=== PATIENT | female | born 1950 | race African-American/Black ===

== ENCOUNTER → 2020-07-22 | Day surgery (SDC) | payer OTHER ==
[2020-07-18 15:37] LABS: Absolute Lymphocytes (CBC) 2.7 K/uL (0.7-4.9); Basophils % 0.5 % (0-1.3); Hematocrit 40.5 % (36.0-45.0); Lymphocytes % 34.5 % (15.3-44.8); MPV 8.9 fL (7.6-11.3); Potassium 5.4 mmol/L (3.5-5.1)
--- NOTE | 2020-07-19 07:44 | RAD REPORT ---
EXAM DESCRIPTION: RAD - Chest Pa And Lat (2 Views) - 07/18/2020 3:14 pm CLINICAL HISTORY: preop, pending right lower quadrant mass removal COMPARISON: June 2019 TECHNIQUE: Frontal and lateral views of the chest were obtained. FINDINGS: The lungs are clear. Heart size is normal and central vasculature is within normal limit s. No pleural effusion or pneumothorax seen. No acute bony finding noted. No aortic abnormality. IMPRESSION: No acute cardiopulmonary process. No significant change from comparison.
[~2020-07-22] MED LIST: CIPROFLOXACIN 400mg IV 400 MG/200 ML BAG IV ONE; FENTANYL CITR 100 MCG/2 ML ONE; LIDOCAINE 2% MPF 5 ML VIAL ONE; MEPERIDINE HCL 25 MG/ML SYR ONE; ONDANSETRON 4 MG/2 ML VIAL ONE; Ringers Lactate 1,000 ML IV ONE; propofoL 200 MG/20 ML VIAL IV ONE
--- NOTE | 2020-07-22 09:00 | P.BOP ---
Preoperative diagnosis: infected abdominal wall mass Postoperative diagnosis: same Primary procedure: Excisional biopsy of infected abdominal wall mass with abscess drainage Secondary procedure: 3 x 2 x 1.5 cm Estimated blood loss: <10cc Specimen: mass and cult Findings: see dictation Anesthesia: General Complications: None Transferred to: Recovery Room Condition: Good
--- NOTE | 2020-07-22 09:33 | DS ---
Diagnosis: Infected abdominal wall subcutaneous mass with abscess. Procedure: Excisional biopsy of infected abdominal wall subcutaneous mass with abscess drainage. Disposition: Home. Activity: As tolerated. No heavy lifting. Plan: Follow up in my office this Wednesday, so we can help with dressing changes. She is going to leave the dressings intact until then. Medications: Tylenol No. 3 q.4 hours p.r.n. pain, Cipro 500 mg p.o. b.i.d. NERI/MILDRED Voice ID: [id number] Report ID: [id number]
--- NOTE | 2020-07-22 09:33 | OP ---
Date of Procedure: 07/22/2020 Surgeon: Mor Chowdary MD Preoperative Diagnosis: Infected abdominal wall subcutaneous mass. Postoperative Diagnosis: Infected abdominal wall subcutaneous mass. Procedure: Excisional biopsy of infected abdominal wall subcutaneous mass, 3 x 2 x 1.5 cm, with absc ess drainage. Specimens: Mass and culture. Findings: The patient has a mass lateral to the previous incision and the patient has a deep abscess . Anesthesia: General plus local. Indications: This is the case of a 69-year-old patient, who comes to us with a mass and abdominal wa ll, increasing in size, getting red, tender, today is bigger than before and with redness associated with fluctuance present, consistent with infected mass with an abscess. Benefits, alternatives, and risks of excision and drainage of an abscess were fully explained which include, but not limited to i nfection, bleeding, damage to adjacent structures, anesthesia complication, nonhealing wound, [place], and even . She also understands this may not relieve the symptoms. She might need more than one s urgical intervention. She understands she will require most likely wound care. The area of concern was marked by me and the patient in the holding room. Description Of Procedure: The patient was brought to the operating room and placed in supine positio n. Anesthesia was done without complication. Abdominal area was prepped and draped in the sterile f ashion. A time-out was called. Local anesthesia was applied followed by a wedge incision of the ski n to include the infected skin with the infected subcutaneous tissue all the way down to about 1.5 cm . At the bottom of this, the patient has an abscess, collection of pus present, that was drained. L oculations were explored open, irrigated and cultured before that. Local anesthesia was applied. Ir rigation was done. Hemostasis obtained and the area was packed with dry dressing. The patient simin ated the procedure well. The patient was sent to Recovery in stable condition. HM/MODL Voice ID: [id number] Report ID: [id number]
[2020-07-22 10:26] VITALS: BP 116/56; TEMP 96.4; O2SAT 100
== END | disposition home or self-care (01) ==
LOC: OR 07:22
PROVIDERS: ATTEND Surgery
PROC: 0WBF0ZZ Excision of Abdominal Wall, Open Approach (ICD-10-PCS; principal; 2020-07-22 08:30)
DX: L72.0 Epidermal cyst (principal); I10 Essential (primary) hypertension; M81.0 Age-related osteoporosis without current pathological fracture; Z20.828 Contact with and (suspected) exposure to other viral communicable diseases
CPT/HCPCS: 93005; 87070; 85025; 80048; 36415; 87205; 88304; 87075; 87077; 87186; 71046; 11403; U0002; J2704; J3010; J2175; J7120; J2405; J0744; 88305

== ENCOUNTER 2025-02-20 16:06 | Emergency (ER) | payer OTHER ==
--- OUTSIDE RECORDS SUMMARY | 2025-02-20 16:11 | XMS REPORT | Continuity of Care Document ---
Author Name Unknown Address [address] [facility] [address] [place] [address] Organization [facility] [place] Address [address] [facility] [address] [place] [address] Care Team Providers Care Horticultural Specialty Grower Name Role Phone ([place]), [facility] Primary Care Phys ician Santi Spears Attending Clinician Unavailable Atilio Hanley MD Attending Clinician [phone] ATILIO HANLEY Attending Clinician Unavailable SAM JACOBS Attending Clinician Unavaila Sam Berger Attending Clinician [phone] Doctor Unassigned, [place] Attending Clinician U Atilio Bowie MD Attending Clinician [phone] SABI ADKINS Attending Clinician Unavailable Angelo BLAIR-Sabi Manzano Attending Clinician [phone] MAXIMO ABBOTT Attending Clinician Unavailable BENNIE MISTRY Attending Clinician Unavailable Milo_S_AH Attending Clinician Unavailable Venancio-Edwardo_A_AH Attending Clinician Unavailable ATILIO HANLEY Admitting Clinician Unavailable SAM JACOBS Admitting Clinician Unavaila ble Milo_S_AH Admitting Clinician Unavailable Venancio-Mbayo_A_AH Admitting Clinician Unavailable Payers Payer Name Policy Type Policy Number Effective Date Expirati on Date Source [place] [employer] P [id number] [facility] AARP MCR Advantage PPO [id number] 2024 00:00:00 [facility] WELLCARE TXP CLASSIC NO PREMIUM [id number] 2021 00:00:00 [employer] [place] (MEDICARE REPLACEMENT/ADV ANTAGE - HMO) [id number] 2019 00:00:00 [facility] [id number] 2015 00:00:00 Problems Condition Name Condition Details Condition Category Status Onset Date Resolution Date Last Treatment Date Treating Clinician Comments Source Primary hypertensi on Primary hypertensi on Disease Active 06-27 00:00: 00 [facility] Palpitatio ns Palpitatio ns Disease Active 06-27 00:00: 00 [facility] Osteopenia Osteopenia Disease Active 02-13 00:00: 00 Overview: Formattin g of this note might be different from the original. On bisphosph prasad [email or web address] Anh Morton History of kidney stones History of kidney stones Disease Active 02-13 00:00: 00 Anh Morton Hypertensi ve disorder Hypertensi ve Disorder Problem Active 2019-11 00:00: 00 [facility] Osteoporos is Osteoporos is Problem Active 2019-11 00:00: 00 [facility] [id number] Tingling of left upper extremity Problem [facility] [id number] Mild hyperlipid emia Problem [facility] [id number] Iron deficiency anemia, unspecifie d iron deficiency anemia type Problem [facility] [id number] Age-relate d osteoporos is without current pathologic al fracture Problem [facility] [id number] Incontinen ce of feces, unspecifie d fecal incontinen ce type Problem [facility] [id number] Memory change Problem [facility] [id number] Other specified cardiac arrhythmia s Problem [facility] No known active problems No known active problems Disease [facility] Allergies, Adverse Reactions, Alerts Allergy Name Allergy Type Status Severity Reaction(s) Onset Date Inactive Date Treating Clinician Comments Source PERFLUTR EN LIPID MICROSPH ERES DRUG INGREDI Active Med Other-Cmnt 11-19 00:00: 00 [facility] Perflutr en Lipid Microsph eres Propensi ty to adverse reaction s to drug Active Other - See comments 11-19 00:00: 00 Back pain 4/10 [facility] Penicill in G Propensi ty to adverse reaction s Active Rash 3- 00:00: 00 Anh Morton Penicill in Propensi ty to adverse reaction s Active Rash 3- 00:00: 00 [facility] PENICILL IN DRUG INGREDI Active Rash 3- 00:00: 00 [facility] [id number] Drug allergy Active Unknown [facility] Latex Allergy to substanc e Active Moderate to severe Hives [facility] PENICILL INS Allergy to substanc e Active Moderate to severe Anaphylaxis [facility] NO KNOWN ALLERGIE S Drug Class Active [facility] Social History Social Habit Start Date Stop Date Quantity Comments Source History of Tobacco Use [facility] Sex Assigned At [facility] to SARS-CoV-2 (event) 2022-12-25 00:00:00 2023-01-04 17:23:00 Not sure [facility] Alcoholic beverage intake 2023-01-04 00:00:00 2023-01-04 00:00:00 Current non-drinker of alcohol (finding) [facility] Tobacco use and exposure 2022-09-10 00:00:00 2022-09-10 00:00:00 Smokeless tobacco non-user [facility] History of Social function 2022-09-10 00:00:00 2022-09-10 00:00:00 [facility] Alcohol intake 2022-09-10 00:00:00 2022-09-10 00:00:00 Current non-drinker of alcohol (finding) [facility] Smoking Status Start Date Stop Date Source Never smoked tobacco [facility] Medications Ordered Medication Name Filled Medication Name Start Date Stop Date Current Medication? Ordering Clinician Indication Dosage Frequency Signature (SIG) Comments Components Source iopamidol (ISOVUE 370-500 mL) injection 85 mL 07-18 19:00: 00 07-18 18:03 :00 No [id number] 85mL 85 mL, Intravenou s, ONCE, 1 dose, On Wed07/18/24 at 1400, Routine [facility] lisinopril 10 mg tablet 06-27 14:12: 51 Yes 5mg Take 0.5 tablets by mouth in the morning. [facility] amLODIPine 2.5 mg tablet 06-27 14:12: 51 Yes 2.5mg Take 1 tablet by mouth in the morning. [facility] ketorolac (TORADOL) injection 15 mg 01-05 00:30: 00 01-04 23:43 :00 No 15mg 15 mg, Slow IV Push, ONCE, 1 dose, On Wed01/04/23 at 1830, Routine [facility] dexamethaso ne (DECADRON PHOSPHATE) injection 10 mg 01-05 00:30: 00 01-04 23:41 :00 No 10mg 10 mg, Oral, ONCE, 1 dose, On Wed01/04/23 at 1830, Routine [facility] ibuprofen 600 mg tablet 01-04 00:00: 00 Yes [id number] 600mg Take 1 tablet by mouth every 6 (six) hours as needed for Pain (scale 4-6). [facility] Nystatin does not apply Powder 2020-11 00:00: 00 Yes [id number] Apply 1 applicatio n topically 3 times daily Anh Morton Miconazole Nitrate 2 % apply externally Powder 2020-11 00:00: 00 Yes [id number] Apply BID X 10 days Anh Morton Triamcinolo ne Acetonide 0.1 % apply externally Lotion 2020-11 00:00: 00 09-15 00:00 :00 No Bid to affected area Anh Morton Fexofenadin e (Joy Allergy) 180 MG oral Tablet 2020-11 00:00: 00 09-15 00:00 :00 No 180mg Take 1 tablet (180 mg total) by mouth daily Anh Morton Clobetasol Propionate 0.05 % apply externally Lotion 2020-11 00:00: 00 09-15 00:00 :00 No Apply topically 2 times daily for 30 days Anh Morton Clindamycin Phosphate (Clindagel) 1 % apply externally Gel 2020-11 00:00: 00 Yes [id number] Apply to affected area 3-4 times daily Anh Morton Doxycycline Hyclate 100 MG oral Tablet 2020-11 00:00: 00 Yes [id number] 100mg Take 1 tablet (100 mg total) by mouth 2 times daily Anh Morton methylPREDN ISolone (Medrol) 4 MG oral Tablet Therapy Pack 03-19 00:00: 00 Yes [id number] 1{andrew} Take 1 andrew by mouth See Admin Instructio ns Use as directed. Anh Morton Amoxicillin -Pot Clavulanate 875-125 MG oral Tablet 03-19 00:00: 00 Yes [id number] 1{tbl} Take 1 tablet by mouth 2 times daily Anh Morton Na Sulfate-K Sulfate-Mg Sulf (Suprep Bowel Prep Kit) 17.5-3.13-1 .6 GM/177ML oral Solution 02-20 00:00: 00 Yes USE DIRECTED Anh Morton Lisinopril 5 MG oral Tablet 02-13 00:00: 00 Yes [id number] 5mg Take 1 tablet (5 mg total) by mouth daily Anh Morton Amlodipine Besylate 2.5 MG oral Tablet 02-13 00:00: 00 Yes [id number] 2.5mg Take 1 tablet (2.5 mg total) by mouth daily Anh Morton ketorolac (TORADOL) injection 30 mg 01-01 18:45: 00 01-01 17:50 :00 No 30mg 30 mg, Intramuscu lar, ONCE, 1 dose, Wed01/01/21 at 1245, Routine
natural resources faculty member approving Restricted medication : SAM JACOBS [facility] dexamethaso ne (DECADRON PHOSPHATE) injection 10 mg 01-01 18:45: 00 01-01 17:49 :00 No 10mg 10 mg, Oral, ONCE, 1 dose, Wed01/01/21 at 1245, Routine [facility] ibuprofen 600 mg tablet 01-01 00:00: 00 Yes [id number] 600mg Take 1 tablet by mouth every 6 (six) hours as needed for Pain (scale 4-6). [facility] traMADoL 50 mg tablet 01-01 00:00: 00 Yes [id number] 50mg Take 1 tablet by mouth every 6 (six) hours as needed for Pain (scale 7-10). Indication s: acute pain [facility] sulfamethox azole-trime thoprim 800-160 mg per tablet 01-01 00:00: 00 01-07 05:59 :00 No [id number] 1{tbl} Take 1 tablet by mouth 2 (two) times daily for 5 days. [facility] lisinopril 10 mg tablet 07-21 16:49: 31 Yes 5mg Take 5 mg by mouth daily. [facility] amLODIPine 2.5 mg tablet 07-21 16:49: 31 Yes 2.5mg Take 2.5 mg by mouth daily. [facility] IBANDRONATE SODIUM (BONIVA ORAL) 07-21 16:49: 31 Yes Take by mouth. [facility] lisinopril 10 mg tablet 07-21 11:49: 31 Yes 5mg Take 5 mg by mouth daily. [facility] amLODIPine 2.5 mg tablet 07-21 11:49: 31 Yes 2.5mg Take 2.5 mg by mouth daily. [facility] IBANDRONATE SODIUM (BONIVA ORAL) 07-21 11:49: 31 Yes Take by mouth. [facility] Ibandronate Sodium 150 MG Ibandronate Sodium 150 MG No 1{table t} Ibandronat e Sodium 150 MG amLODIPine Besylate 2.5 MG amLODIPine Besylate 2.5 MG No 1{table t} QD amLODIPine Besylate 2.5 MG Lisinopril 5 MG Lisinopril 5 MG No 1{table t} QD Lisinopril 5 MG alendronate 35 mg tablet Take 1 tablet every week by oral route. alendronate 35 mg tablet Take 1 tablet every week by oral route. No 1 Q1W alendronat e 35 mg tablet Take 1 tablet every week by oral route. [facility] amlodipine 2.5 mg tablet Take 1 tablet every day by oral route. amlodipine 2.5 mg tablet Take 1 tablet every day by oral route. No 1 Q1D amlodipine 2.5 mg tablet Take 1 tablet every day by oral route. [facility] lisinopril 5 mg tablet Take 1 tablet every day by oral route. lisinopril 5 mg tablet Take 1 tablet every day by oral route. No 1 Q1D lisinopril 5 mg tablet Take 1 tablet every day by oral route. [facility] Immunizations Ordered Immunization Name Filled Immunization Name Date Status Comments Source Influenza High Dose 2022-07-02 00:00:00 Completed [facility] Influenza High Dose 2022-07-02 00:00:00 Completed [facility] Influenza High Dose 2022-07-02 00:00:00 Completed [facility] Influenza High Dose 2022-07-02 00:00:00 Completed [facility] Influenza High Dose 2022-07-02 00:00:00 Completed [facility] Influenza, High-Dose, Trivalent, PF (FLUZONE) 2022-07-02 00:00:00 Completed Influenza High Dose 2022-07-02 00:00:00 Completed [facility] Prevnar 20 (PCV20) Prevnar 20 (PCV20) 2022-02-17 15:25:00 Completed [facility] Prevnar 20 (PCV20) Prevnar 20 (PCV20) 2022-02-17 15:25:00 Completed [facility] Prevnar 20 (PCV20) Prevnar 20 (PCV20) 2022-02-17 15:25:00 Completed [facility] Influenza High Dose 2021-07-19 00:00:00 Completed [facility] Influenza High Dose 2021-07-19 00:00:00 Completed [facility] Influenza High Dose 2021-07-19 00:00:00 Completed [facility] Influenza High Dose 2021-07-19 00:00:00 Completed [facility] Influenza High Dose 2021-07-19 00:00:00 Completed [facility] Influenza, High-Dose, Trivalent, PF (FLUZONE) 2021-07-19 00:00:00 Completed [facility] Influenza High Dose 2021-07-19 00:00:00 Completed [facility] Influenza Virus Vaccine, Quadrivalent, High Dose, Age 65 And Up 2021-07-19 00:00:00 Completed Anh Morton Covid-19 Vaccine (Moderna), Mrna-lnp, Jordi Protein, Pf, 100 Mcg/0.5ml,IM 2020-12-18 00:00:00 Completed Anh Morton Covid-19 Vaccine (Moderna), Mrna-lnp, Jordi Protein, Pf, 100 Mcg/0.5ml,IM 2020-12-18 00:00:00 Completed Anh Morton Covid-19 Vaccine (Moderna), Mrna-lnp, Jordi Protein, Pf, 100 Mcg/0.5ml,IM 2020-11-20 00:00:00 Completed Anh Alcarazold Covid-19 Vaccine (Moderna), Mrna-lnp, Jordi Protein, Pf, 100 Mcg/0.5ml,IM 2020-11-20 00:00:00 Completed Anh Morton Influenza Virus Vaccine, age 6 months and up 2018-09-01 00:00:00 Completed Anh Morton Influenza Virus Vaccine, age 6 months and up 2018-09-01 00:00:00 Completed Anh Morton Tdap- (Boostrix, Adacel) 2017-02-08 00:00:00 Completed Anh Morton Tdap- (Boostrix, Adacel) 2017-02-08 00:00:00 Completed Anh Morton Pneumococcal Vaccine, Conjugate 13 2012-11-01 00:00:00 Completed Anh Morton Pneumococcal Vaccine, Conjugate 13 2012-11-01 00:00:00 Completed Anh Morton Prevnar 20 (PCV20) Prevnar 20 (PCV20) Unknown Completed [facility] Prevnar 20 (PCV20) Prevnar 20 (PCV20) Unknown Completed [facility] Prevnar 20 (PCV20) Prevnar 20 (PCV20) Unknown Completed [facility] Prevnar 20 (PCV20) Prevnar 20 (PCV20) Unknown Completed [facility] Prevnar 20 (PCV20) Prevnar 20 (PCV20) Unknown Completed [facility] Prevnar 20 (PCV20) Prevnar 20 (PCV20) Unknown Completed [facility] Prevnar 20 (PCV20) Prevnar 20 (PCV20) Unknown Completed [facility] Prevnar 20 (PCV20) Prevnar 20 (PCV20) Unknown Completed [facility] Prevnar 20 (PCV20) Prevnar 20 (PCV20) Unknown Completed [facility] Prevnar 20 (PCV20) Prevnar 20 (PCV20) Unknown Completed [facility] Prevnar 20 (PCV20) Prevnar 20 (PCV20) Unknown Completed [facility] Prevnar 20 (PCV20) Prevnar 20 (PCV20) Unknown Completed [facility] Fluad (aIIV4) - SDS - 0.5mL Fluad (aIIV4) - SDS - 0.5mL Unknown Completed [facility] Prevnar 20 (PCV20) Prevnar 20 (PCV20) Unknown Completed [facility] Fluad (aIIV4) - SDS - 0.5mL Fluad (aIIV4) - SDS - 0.5mL Unknown Completed [facility] Prevnar 20 (PCV20) Prevnar 20 (PCV20) Unknown Completed [facility] Fluad (aIIV4) - SDS - 0.5mL Fluad (aIIV4) - SDS - 0.5mL Unknown Completed [facility] Influenza High Dose Unknown Completed [facility] Influenza High Dose Unknown Completed [facility] Influenza High Dose Unknown Completed [facility] Influenza High Dose Unknown Completed [facility] Vital Signs Vital Name Observation Time Observation Value Comments Maverick zepeda height 2024-12-20 10:00:00 64 [in_i] [facility] weight 2024-12-20 10:00:00 130.6 [lb_av] Co mmon [facility] temperature 2024-12-20 10:00:00 97.3 [degF] Com mon [facility] bmi 2024-12-20 10:00:00 22.41 kg/m2 Comm on [facility] oximetry 2024-12-20 10:00:00 99 % [facility] heart rate 2024-12-20 10:00:00 67 /min [facility] respiratory rate 2024-12-20 10:00:00 17 /min Common [facility] blood pressure systolic 2024-12-20 10:00:00 114 mm[Hg] Common [facility] blood pressure diastolic 2024-12-20 10:00:00 68 mm[Hg] Common [facility] height 2024-12-20 10:30:00 64 [in_i] Commo n [facility] weight 2024-12-20 10:30:00 130.6 [lb_av] Co mmon [facility] temperature 2024-12-20 10:30:00 97.3 [degF] Com mon [facility] bmi 2024-12-20 10:30:00 22.41 kg/m2 Comm on [facility] oximetry 2024-12-20 10:30:00 98 % Commo n [facility] blood pressure systolic 2024-12-20 10:30:00 114 mm[Hg] Common [facility] blood pressure diastolic 2024-12-20 10:30:00 68 mm[Hg] [facility] height 2024-08-17 08:30:00 64 [in_i] Commo n [facility] weight 2024-08-17 08:30:00 127 [lb_av] Comm on [facility] temperature 2024-08-17 08:30:00 97.3 [degF] Com [facility] bmi 2024-08-17 08:30:00 21.8 kg/m2 Commo n [facility] oximetry 2024-08-17 08:30:00 98 % Commo n [facility] blood pressure systolic 2024-08-17 08:30:00 126 mm[Hg] [facility] blood pressure diastolic 2024-08-17 08:30:00 66 mm[Hg] [facility] height 2024-08-17 08:30:00 64 [in_i] Commo n [facility] weight 2024-08-17 08:30:00 127 [lb_av] Comm on [facility] temperature 2024-08-17 08:30:00 97.3 [degF] Com [facility] bmi 2024-08-17 08:30:00 21.8 kg/m2 Com[facility] oximetry 2024-08-17 08:30:00 98 % [facility] blood pressure systolic 2024-08-17 08:30:00 126 mm[Hg] [facility] blood pressure diastolic 2024-08-17 08:30:00 66 mm[Hg] [facility] Systolic blood pressure 2024-06-27 19:18:00 119 mm[Hg] [facility] Diastolic blood pressure 2024-06-27 19:18:00 67 mm[Hg] [facility] Heart rate 2024-06-27 19:18:00 62 /min [facility] Body temperature 2024-06-27 19:18:00 36.44 Adeola [facility] Respiratory rate 2024-06-27 19:18:00 14 /min [facility] Body height 2024-06-27 19:18:00 162.6 cm [facility] Body weight 2024-06-27 19:18:00 56.654 kg [facility] BMI 2024-06-27 19:18:00 21.44 kg/m2 [facility] Oxygen saturation in Arterial blood by Pulse oximetry 2024-06-27 19:18:00 100 /min [facility] height 2024-05-17 10:40:00 64 [in_i] Commo n [facility] weight 2024-05-17 10:40:00 122.8 [lb_av] Co [facility] temperature 2024-05-17 10:40:00 97.6 [degF] Com [facility] bmi 2024-05-17 10:40:00 21.08 kg/m2 Comm on [facility] oximetry 2024-05-17 10:40:00 100 % Commo [facility] respiratory rate 2024-05-17 10:40:00 17 /min [facility] blood pressure systolic 2024-05-17 10:40:00 128 mm[Hg] [facility] blood pressure diastolic 2024-05-17 10:40:00 62 mm[Hg] [facility] height 2024-02-22 09:30:00 64 [in_i] Commo n [facility] weight 2024-02-22 09:30:00 120.6 [lb_av] Co on [facility] temperature 2024-02-22 09:30:00 96.8 [degF] Com [facility] bmi 2024-02-22 09:30:00 20.7 kg/m2 [facility] oximetry 2024-02-22 09:30:00 98 % [facility] respiratory rate 2024-02-22 09:30:00 18 /min [facility] blood pressure systolic 2024-02-22 09:30:00 116 mm[Hg] [facility] blood pressure diastolic 2024-02-22 09:30:00 72 mm[Hg] [facility] height 2024-02-22 09:40:00 64 [in_i] Commo n [facility] weight 2024-02-22 09:40:00 120.6 [lb_av] Co mmon [facility] temperature 2024-02-22 09:40:00 96.8 [degF] Com [facility] bmi 2024-02-22 09:40:00 20.7 kg/m2 [facility] oximetry 2024-02-22 09:40:00 98 % [facility] respiratory rate 2024-02-22 09:40:00 18 /min [facility] blood pressure systolic 2024-02-22 09:40:00 116 mm[Hg] [facility] blood pressure diastolic 2024-02-22 09:40:00 72 mm[Hg] [facility] height 2023-08-30 08:50:00 64 [in_i] Commo n [facility] weight 2023-08-30 08:50:00 131.8 [lb_av] Co mmon [facility] temperature 2023-08-30 08:50:00 97.2 [degF] Com [facility] bmi 2023-08-30 08:50:00 22.62 kg/m2 Comm on [facility] oximetry 2023-08-30 08:50:00 99 % Commo [facility] respiratory rate 2023-08-30 08:50:00 16 /min [facility] blood pressure systolic 2023-08-30 08:50:00 122 mm[Hg] Common [facility] blood pressure diastolic 2023-08-30 08:50:00 58 mm[Hg] [facility] height 2023-05-26 09:00:00 64 [in_i] Commo n [facility] weight 2023-05-26 09:00:00 131.8 [lb_av] Co mmon [facility] temperature 2023-05-26 09:00:00 96.8 [degF] Com mon [facility] bmi 2023-05-26 09:00:00 22.62 kg/m2 Comm on [facility] oximetry 2023-05-26 09:00:00 98 % Commo n [facility] respiratory rate 2023-05-26 09:00:00 16 /min [facility] blood pressure systolic 2023-05-26 09:00:00 118 mm[Hg] [facility] blood pressure diastolic 2023-05-26 09:00:00 78 mm[Hg] [facility] height 2023-02-11 09:50:00 64 [in_i] Commo n [facility] weight 2023-02-11 09:50:00 131 [lb_av] Comm on [facility] temperature 2023-02-11 09:50:00 96.6 [degF] Com mon [facility] bmi 2023-02-11 09:50:00 22.48 kg/m2 Comm on [facility] oximetry 2023-02-11 09:50:00 97 % Commo [facility] respiratory rate 2023-02-11 09:50:00 16 /min [facility] blood pressure systolic 2023-02-11 09:50:00 125 mm[Hg] [facility] blood pressure diastolic 2023-02-11 09:50:00 60 mm[Hg] [facility] height 2023-02-11 10:00:00 64 [in_i] Commo n [facility] weight 2023-02-11 10:00:00 131 [lb_av] Comm on [facility] temperature 2023-02-11 10:00:00 96.6 [degF] Com mon [facility] bmi 2023-02-11 10:00:00 22.48 kg/m2 Comm on [facility] oximetry 2023-02-11 10:00:00 97 % Commo n [facility] respiratory rate 2023-02-11 10:00:00 16 /min [facility] blood pressure systolic 2023-02-11 10:00:00 125 mm[Hg] Common [facility] blood pressure diastolic 2023-02-11 10:00:00 60 mm[Hg] Common [facility] height 2023-01-06 11:00:00 64 [in_i] Commo n [facility] weight 2023-01-06 11:00:00 129.8 [lb_av] Co mmon [facility] temperature 2023-01-06 11:00:00 97.4 [degF] Com mon [facility] bmi 2023-01-06 11:00:00 22.28 kg/m2 Comm on [facility] oximetry 2023-01-06 11:00:00 100 % Commo n [facility] respiratory rate 2023-01-06 11:00:00 17 /min [facility] blood pressure systolic 2023-01-06 11:00:00 138 mm[Hg] [facility] blood pressure diastolic 2023-01-06 11:00:00 65 mm[Hg] Common [facility] Systolic blood pressure 2023-01-04 23:23:43 139 mm[Hg] [facility] Diastolic blood pressure 2023-01-04 23:23:43 69 mm[Hg] [facility] Heart rate 2023-01-04 23:23:43 64 /min [facility] 2023-01-04 23:23:43 14 /min [facility] Oxygen saturation in Arterial blood by Pulse oximetry 2023-01-04 23:23:43 97 /min [facility] Body temperature 2023-01-04 20:55:00 37.11 Adeola [facility] Body height 2023-01-04 20:55:00 162.6 cm [facility] Body weight 2023-01-04 20:55:00 58.968 kg [facility] BMI 2023-01-04 20:55:00 22.31 kg/m2 [facility] Systolic blood pressure 2022-09-10 22:02:00 136 mm[Hg] [facility] Diastolic blood pressure 2022-09-10 22:02:00 69 mm[Hg] [facility] Heart rate 2022-09-10 22:02:00 65 /min [facility] Oxygen saturation in Arterial blood by Pulse oximetry 2022-09-10 22:02:00 99 /min [facility] Respiratory rate 2022-09-10 21:57:00 21 /min [facility] Body height 2022-09-10 21:57:00 162.6 cm [facility] Body weight 2022-09-10 21:57:00 60.782 kg [facility] BMI 2022-09-10 21:57:00 23.00 kg/m2 [facility] height 2022-08-18 09:30:00 64 [in_i] Commo n [facility] weight 2022-08-18 09:30:00 133.4 [lb_av] Co mmon [facility] temperature 2022-08-18 09:30:00 97.2 [degF] Com mon [facility] bmi 2022-08-18 09:30:00 22.9 kg/m2 [facility] oximetry 2022-08-18 09:30:00 97 % [facility] respiratory rate 2022-08-18 09:30:00 17 /min Common [facility] blood pressure systolic 2022-08-18 09:30:00 123 mm[Hg] [facility] blood pressure diastolic 2022-08-18 09:30:00 68 mm[Hg] [facility] height 2022-02-17 15:00:00 64 [in_i] Commo n [facility] weight 2022-02-17 15:00:00 137.2 [lb_av] Co mmon [facility] temperature 2022-02-17 15:00:00 97.9 [degF] Com [facility] bmi 2022-02-17 15:00:00 23.55 kg/m2 Comm on [facility] oximetry 2022-02-17 15:00:00 98 % Commo n [facility] respiratory rate 2022-02-17 15:00:00 18 /min [facility] blood pressure systolic 2022-02-17 15:00:00 139 mm[Hg] [facility] blood pressure diastolic 2022-02-17 15:00:00 63 mm[Hg] [facility] height 2022-02-17 14:30:00 64 [in_i] Commo n [facility] weight 2022-02-17 14:30:00 137.2 [lb_av] Co mmon [facility] temperature 2022-02-17 14:30:00 97.9 [degF] Com mon [facility] bmi 2022-02-17 14:30:00 23.55 kg/m2 Comm on [facility] oximetry 2022-02-17 14:30:00 98 % [facility] respiratory rate 2022-02-17 14:30:00 18 /min Common [facility] blood pressure systolic 2022-02-17 14:30:00 139 mm[Hg] Common [facility] blood pressure diastolic 2022-02-17 14:30:00 63 mm[Hg] [facility] height 2021-11-05 11:00:00 64 [in_i] Commo n [facility] weight 2021-11-05 11:00:00 135.9 [lb_av] Co mmon [facility] temperature 2021-11-05 11:00:00 97.3 [degF] Com mon [facility] bmi 2021-11-05 11:00:00 23.32 kg/m2 Comm on [facility] oximetry 2021-11-05 11:00:00 99 % Commo n [facility] respiratory rate 2021-11-05 11:00:00 18 /min [facility] blood pressure systolic 2021-11-05 11:00:00 136 mm[Hg] Common [facility] blood pressure diastolic 2021-11-05 11:00:00 63 mm[Hg] Common [facility] Systolic blood pressure 2021-09-15 18:58:00 118 mm[Hg] Anh Seybo ld Diastolic blood pressure 2021-09-15 18:58:00 67 mm[Hg] Anh Seybo ld Heart rate 2021-09-15 18:58:00 84 /min Kelse y Seybold Body temperature 2021-09-15 18:58:00 36.33 Adeola Anh Alcarazold Body height 2021-09-15 18:58:00 162.6 cm Geri ey Seybold Body weight 2021-09-15 18:58:00 60.782 kg Geri ey Seybold BMI 2021-09-15 18:58:00 23.00 kg/m2 Geri ey Seybold Systolic blood pressure 2021-08-21 19:21:00 123 mm[Hg] Anh Seybo ld Diastolic blood pressure 2021-08-21 19:21:00 64 mm[Hg] Anh Seybo ld Heart rate 2021-08-21 19:21:00 76 /min Joshua Morton Body temperature 2021-08-21 19:21:00 36.67 Adeola Anh Morton Respiratory rate 2021-08-21 19:21:00 14 /min Anh Morton Body height 2021-08-21 19:21:00 162.6 cm Geri Morton Body weight 2021-08-21 19:21:00 62.143 kg Geri Morton BMI 2021-08-21 19:21:00 23.52 kg/m2 Geri Morton Systolic blood pressure 2021-01-01 18:20:00 130 mm[Hg] [facility] Diastolic blood pressure 2021-01-01 18:20:00 60 mm[Hg] [facility] Heart rate 2021-01-01 18:20:00 66 /min [facility] Respiratory rate 2021-01-01 18:20:00 18 /min [facility] Oxygen saturation in Arterial blood by Pulse oximetry 2021-01-01 18:20:00 98 /min [facility] Body temperature 2021-01-01 16:56:00 36.83 Adeola [facility] Body weight 2021-01-01 16:56:00 58.968 kg [facility] BMI 2021-01-01 16:56:00 22.31 kg/m2 [facility] Height 2020-08-08 00:00:00 64 [in_i] Last [facility] BMI (Body Mass Index) 2020-08-08 00:00:00 23.3 kg/m2 [facility] Body Weight 2020-08-08 00:00:00 136 [lb_av] Larry terrye [facility] Procedures Procedure Date / Time Performed Performing Clinician Source CT CERVICAL SPINE WO CONTRAST 2023-01-04 22:46:14 Sam Jacobs [facility] CT HEAD WO CONTRAST 2023-01-04 22:46:14 Mary Jacobs [facility] LIPASE 2023-01-04 22:32:00 [facility]23[facility]-04 22:32:00 [facility] COMP. METABOLIC PANEL ([id number]) 2023-01-04 22:32:00 Sam Jacobs [facility] CBC WITH DIFF 2023-01-04 22:32:00 Sam Jacobs [facility] N-TERMINAL PRO-BNP 2023-01-04 22:32:00 Radha Jacobs [facility] XR SHOULDER 2+ VW LEFT 2023-01-04 22:28:40 Donavan Jacobs [facility] CONSENT/REFUSAL FOR DIAGNOSIS AND TREATMENT 2023-01-04 20:43:34 Doctor Unassigned, [place] [facility] INSURANCE CORRESPONDENCE 2022-10-31 06:01:00 Doc tor Unassigned, [place] [facility] INSURANCE CORRESPONDENCE 2022-10-12 06:01:00 Doc tor Unassigned, [place] [facility] ASSIGNMENT OF BENEFITS 2022-09-10 21:30:44 Docto r Unassigned, [place] [facility] EXTERNAL PROVIDER - ADC REFERRAL 2022-08-27 05:01:00 Doctor Unassigned, [place] [facility] URINALYSIS 2021-01-01 17:20:00 Pavel Faria [facility] Plan of Care Planned Activity Planned Date Details Comments Source Instructions [facility] En[facility] Start Date/Time End Date/Time Encounter Type Admission Type Attending Clinicians Care Facility Care Department Encounter ID Source 2024-12-20 09:47:00 [facility] [id number] [facility] 2024-06-19 14:18:00 [facility] [id number] [facility] 2024-05-15 14:43:00 [facility] [id number] [facility] 2022-08-14 10:04:02 [facility] [id number] [facility] 2021-11-26 14:31:14 Outpatient S[facility] [id number] [facility] 2021-08-17 07:52:54 Outpatient [facility] [id number] [facility] 2024-12-20 00:00:00 2024-12-20 00:00:00 OFF[facility] VISIT [facility] [id number] 2024-12-20 00:00:00 2024-12-20 00:00:00 SUB ANNUAL [facility] [id number] [facility] 2024-07-20 00:00:00 2024-08-26 18:27:55 Patient Secure Atilio Oneal [facility] 1.2.840.114 350.1.13.10 4.2.7.2.686 [id number] [facility] 2024-08-17 00:00:00 2024-08-17 00:00:00 OFFICE VISIT ESTAB PT LEVEL 4 [facility] [id number] [facility] 2024-07-18 09:58:26 2024-07-18 23:59:00 Outpatient R ATILIO [facility] [id number] [facility] 2024-07-18 09:58:26 2024-07-18 23:59:00 Hospital Encounter Atilio Hanley [facility]UD[facility] 1..840.114 350.1.13.10 4.2.7.2.686 [id number] [facility] 2024-07-04 08:00:00 2024-07-04 23:59:00 Outpatient ATILIO [facility] [id number] [facility] 2024-07-04 08:00:00 2024-07-04 23:59:00 [facility] 1.2.840.114 350.1.13.10 4.2.7.2.686 [id number] [facility] 2024-06-27 14:20:00 2024-06-27 14:40:00 [facility] 1.2.840.114 350.1.13.10 4.2.7.2.686 [id number] [facility] 2024-06-27 14:20:00 2024-06-27 14:20:00 [facility] [id number] [facility] 2024-06-19 00:00:00 2024-06-19 00:00:00 (TEL) [facility] [id number] [facility] 2024-05-22 00:00:00 2024-05-22 00:00:00 (TEL) [facility]LMLC [facility] [id number] [facility] 2024-05-17 00:00:00 2024-05-17 00:00:00 OFFICE VISIT ESTAB PT LEVEL 3 [facility] [id number] [facility] 2024-05-15 00:00:00 2024-05-15 00:00:00 (TEL) [facility]LMLC [facility] [id number] [facility] 2024-05-14 00:00:00 2024-05-14 00:00:00 (WEB) STLMLC [facility] [id number] [facility] 2024-04-07 00:00:00 2024-04-07 00:00:00 (TEL) [facility]LMLC [facility] [id number] [facility] 2024-04-04 00:00:00 2024-04-04 00:00:00 (TEL) STLMLC [facility] [id number] [facility] 2024-02-22 00:00:2024-02-22 00:00:00 OFFICE VISIT ESTAB PT LEVEL 4 [facility] [id number] [facility] 2024-02-22 00:00:00 2024-02-22 00:00:00 SUB ANNUAL [facility] WELLNESS VISIT [facility]LMLC [facility] [id number] [facility] 2023-08-30 00:00:00 2023-08-30 00:00:00 OFFICE VISIT ESTAB PT LEVEL 4 [facility] [id number] [facility] 2023-05-26 00:00:00 2023-05-26 00:00:00 OFFICE VISIT ESTAB PT LEVEL 3 [facility] [id number] [facility] 2023-05-24 00:00:00 2023-05-24 00:00:00 (WEB) STLMLC STLML[facility] [id number] [facility] 2023-04-08 00:00:00 2023-04-08 00:00:00 (WEB) STLMLC [facility] [id number] [facility] 2023-04-07 00:00:00 2023-04-07 00:00:00 (TEL) [facility]LMLC [facility] [id number] [facility] 2023-04-07 00:00:00 2023-04-07 00:00:00 (TEL) STLMLC [facility] [id number] [facility] 2023-02-11 00:00:00 2023-02-11 00:00:00 OFFICE VISIT ESTAB PT LEVEL 3 [facility] [id number] [facility] 2023-02-11 00:00:00 2023-02-11 00:00:00 SUB ANNUAL MCR WELLNESS VISIT [facility]LMLC [facility] [id number] [facility] 2023-01-06 00:00:00 2023-01-06 00:00:00 OFFICE VISIT ESTAB PT LEVEL 3 [facility] [id number] [facility] 2023-01-05 00:00:00 2023-01-05 00:00:00 (TEL) [facility] [id number] [facility] 2023-01-04 14:56:00 2023-01-04 17:51:00 Emergency X SAM JACOBS [facility] ERT [id number] [facility] 2023-01-04 14:56:00 2023-01-04 17:51:00 Emergency Sam Jacobs [facility] 1.840.114 350.1.13.10 4.2.7.2.686 [id number] [facility] 2023-01-04 00:00:00 2023-01-04 00:00:00 (WEB) [facility] [id number] [facility] 2023-01-04 00:00:00 2023-01-04 00:00:00 Orders Only Doctor Unassigned, [place] [facility] 1.840.114 350.1.13.10 4.2.7.2.686 [id number] [facility] 2022-12-10 00:00:00 2022-12-10 00:00:00 (TEL) [facility] [id number] [facility] 2022-11-20 00:00:00 2022-11-20 00:00:00 Patient Secure Atilio Hanley [facility] 1.840.114 350.1.13.10 4.2.7.2.686 [id number] [facility] 2022-11-19 09:51:51 2022-11-19 23:59:00 Outpatient R ATILIO [facility] [id number] [facility] 2022-10-31 00:00:00 2022-10-31 00:00:00 Orders Only Doctor Unassigned, [place] [facility] 1.840.114 350.1.13.10 4.2.7.2.686 [id number] [facility] 2022-10-21 10:00:00 2022-10-21 10:00:00 [facility] [id number] [facility] 2022-10-12 00:00:00 2022-10-12 00:00:00 Orders Only Doctor Unassigned, [place] [facility] 1.2.840.114 350.1.13.10 4.2.7.2.686 [id number] [facility] 2022-09-10 15:40:00 2022-09-10 16:19:16 [facility] [id number] [facility] 2022-09-10 15:40:00 2022-09-10 16:19:16 [facility] 1.2.840.114 350.1.13.10 4.2.7.2.686 [id number] [facility] 2022-09-10 00:00:00 2022-09-10 00:00:00 Orders Only Doctor Unassigned, [place] [facility] 1.2.840.114 350.1.13.10 4.2.7.2.686 [id number] [facility] 2022-08-27 00:00:00 2022-08-27 00:00:00 Orders Only Doctor Unassigned, [place] [facility] 1.2.840.114 350.1.13.10 4.2.7.2.686 [id number] [facility] 2022-08-18 00:00:00 2022-08-18 00:00:00 OFFICE VISIT ESTAB PT LEVEL 4 [facility] [id number] [facility] 2022-02-17 00:00:00 2022-02-17 00:00:00 OFFICE VISIT ESTAB PT LEVEL 4 [facility] [id number] [facility] 2022-02-17 00:00:00 2022-02-17 00:00:00 SUB ANNUAL [facility] WELL[facility] VISIT STLMLC STLMLC [id number] [facility] 2021-11-20 00:00:00 2021-11-20 00:00:00 (TEL) STLMLC STLMLC [id number] [facility] 2021-11-05 00:00:00 2021-11-05 00:00:00 Outpatient SABI ADKINS [id number] [facility] 2021-11-05 00:00:00 2021-11-05 00:00:00 OFFICE VISIT NEW PT LEVEL 3 [facility] ST[facility] [id number] [facility] 2021-09-18 00:00:00 2021-09-18 00:00:00 Outpatient SABI ADKINS [id number] [facility] 2021-09-17 00:00:00 2021-09-17 00:00:00 Outpatient SABI ADKINS [id number] Anh [facility] 2021-09-15 12:56:39 2021-09-15 13:26:39 Office Visit Sabi Adkins 1.2.840.114 350.1.13.13 1.2.7.2.[id number] [facility] 2021-09-15 00:00:00 2021-09-15 00:00:00 Outpatient SABI ADKINS [id number] [facility]h [facility] 2021-09-15 00:00:00 2021-09-15 00:00:00 Outpatient SABI ADKINS [id number] [facility]h [facility] 2021-09-11 00:00:00 2021-09-11 00:00:00 [facility] [id number] [facility] 00:00:00 2021-09-05 00:00:00 Outpatient BENNIE MISTRY [id number] Anh [facility] 2021-09-04 00:00:00 2021-09-04 00:00:00 Outpatient BENNIE MISTRY [facility] [id number] [facility] 2021-09-02 00:00:00 2021-09-02 00:00:00 Outpatient SABI ADKINS ANH [id number] [facility] 2021-09-02 00:00:00 2021-09-02 00:00:00 Outpatient BENNIE MISTRY [facility]H [id number] [facility] 2021-08-29 00:00:00 2021-08-29 00:00:00 Outpatient SABI ADKINS ANH SORIA [id number] Anh [facility] 2021-08-21 14:17:15 2021-08-21 14:47:15 Office Visit Sabi Adkins [facility] 1.2.840.114 350.1.13.13 1.2.7.2.[id number] [facility] 2021-08-21 00:00:00 2021-08-21 00:00:00 Outpatient MAXIMO ABBOTT ANH [id number] [facility] 2021-08-21 00:00:00 2021-08-21 00:00:00 Outpatient MAXIMO ABBOTT ANH ANH [id number] Anh [facility] 2021-04-17 04:24:00 2021-04-17 04:24:00 [facility] [id number] [facility] 2021-01-01 10:59:00 2021-01-01 12:55:00 Emergency Sam Jacobs [facility] ..840.114 350.1.13.10 4.2.7.2.686 [id number] [facility] 2021-01-01 10:45:00 2021-01-01 10:45:00 Emergency X [facility]ACOBS [facility] ERT [id number] [facility] 2020-10-02 04:28:00 2020-10-02 04:28:00 Outpatient Venancio-Mbayo _A_AH [facility] [id number] [facility] 2020-08-21 02:46:00 2020-08-21 02:46:00 Outpatient Venancio-Mbayo _A_AH VFP [facility] [id number] [facility] 2020-08-08 00:00:00 2020-08-08 00:00:00 Kasia Haq o, OPERATIONS ASSOCIATE: [id number] [facility], [address], [place] [address] , Ph. VFP [place] - [facility] - VM_HOU_V@_ [place] [employer] [id number] [facility] 2019-12-20 07:13:00 2019-12-20 07:13:00 Outpatient Venancio-Mbayo _A_AH [facility] [id number] [facility] 2019-12-20 07:13:00 2019-12-20 07:13:00 Outpatient Venancio-Mbayo _A_AH VFP [facility] [id number] [facility] Results Test Description Test Time Test Comments Results Result Co mments Source COMPREHENSIVE METABOLIC [id number] 00:00:00* Test Item Value Reference Range Interpretation Comme nts NUCLEATED RBCS (test code = 92832-5) 0.0 /100 WBC'S See_Comment [Automated message] The system which generated this result transmitted reference range: 0.0 /100 WBC'S. The reference range was not used to interpret this result as normal/abnormal. ABSOLUTE EOSINOPHILS (test code = 35562-0) 0.06 K/UL See_Comment [Automated message] The system which generated this result transmitted reference range: 0.00-0.50 K/UL. The reference range was not used to interpret this result as normal/abnormal. ABSOLUTE LYMPHOCYTES (test code = 22376-4) 2.16 K/UL See_Comment [Automated message] The system which generated this result transmitted reference range: 1.00-4.00 K/UL. The reference range was not used to interpret this result as normal/abnormal. ABSOLUTE MONOCYTES (test code = 24810-9) 0.34 K/UL See_Comment [Automated message] The system which generated this result transmitted reference range: 0.20-1.00 K/UL. The reference range was not used to interpret this result as normal/abnormal. ABSOLUTE NEUTROPHILS (test code = 60927-2) 2.56 K/UL See_Comment [Automated message] The system which generated this result transmitted reference range: 1.50-7.50 K/UL. The reference range was not used to interpret this result as normal/abnormal. BASOPHILS (test code = 33878-5) 0.8 % EOSINOPHILS (test code = 10792-8) 1.2 % HEMATOCRIT (test code = 87886-9) 38.3 % See_Comment [Automated messa ge] The system which generated this result transmitted reference range: 34.0-45.0 %. The reference range was not used to interpret this result as normal/abnormal. HEMOGLOBIN (test code = 718-7) 12.5 G/DL See_Comment [Automated messa ge] The system which generated this result transmitted reference range: 11.5-15.5 G/DL. The reference range was not used to interpret this result as normal/abnormal. LYMPHOCYTES (test code = 02599-2) 41.7 % MCH (test code = 75539-9) 30.1 PG See_Comment [Automated messa ge] The system which generated this result transmitted reference range: 25.0-33.0 PG. The reference range was not used to interpret this result as normal/abnormal. MCHC (test code = 65868-4) 32.6 G/DL See_Comment [Automated messa ge] The system which generated this result transmitted reference range: 31.0-36.0 G/DL. The reference range was not used to interpret this result as normal/abnormal. MCV (test code = 39937-1) 92.3 fL See_Comment [Automated messa ge] The system which generated this result transmitted reference range: 80.0-99.0 fL. The reference range was not used to interpret this result as normal/abnormal. MONOCYTES (test code = 97067-0) 6.6 % NEUTROPHILS (test code = 78304-2) 49.3 % PLATELET COUNT (test code = 64089-6) 290 K/UL See_Comment [Automated messa ge] The system which generated this result transmitted reference range: 130-400 K/UL. The reference range was not used to interpret this result as normal/abnormal. RBC (test code = 60900-4) 4.15 M/UL See_Comment [Automated messa ge] The system which generated this result transmitted reference range: 3.80-5.40 M/UL. The reference range was not used to interpret this result as normal/abnormal. RDW (test code = 88008-7) 12.9 % See_Comment [Automated messa ge] The system which generated this result transmitted reference range: 11.5-15.0 %. The reference range was not used to interpret this result as normal/abnormal. WBC (test code = 99498-2) 5.2 K/UL See_Comment [Automated messa ge] The system which generated this result transmitted reference range: 3.5-11.0 K/UL. The reference range was not used to interpret this result as normal/abnormal. FERRITIN (test code = 88622-9) 115 NG/ML See_Comment [Automated messa ge] The system which generated this result transmitted reference range: 13-200 NG/ML. The reference range was not used to interpret this result as normal/abnormal. HEMOGLOBIN A1c (test code = 4548-4) 6.1 % See_Comment H [Automated messa ge] The system which generated this result transmitted reference range: 4.2-5.6 %. The reference range was not used to interpret this result as normal/abnormal. CALC LDL CHOL (test code = 36063-3) 132 MG/DL See_Comment H [Automated messa ge] The system which generated this result transmitted reference range: <100 MG/DL. The reference range was not used to interpret this result as normal/abnormal. CHOLESTEROL (test code = 2093-3) 224 MG/DL See_Comment H [Automated messa ge] The system which generated this result transmitted reference range: <200 MG/DL. The reference range was not used to interpret this result as normal/abnormal. HDL CHOLESTEROL (test code = 2085-9) 77 MG/DL See_Comment [Automated messa ge] The system which generated this result transmitted reference range: >39 MG/DL. The reference range was not used to interpret this result as normal/abnormal. RISK RATIO LDL/HDL (test code = 05159-4) 1.71 RATIO See_Comment [Automated message] The system which generated this result transmitted reference range: <3.22 RATIO. The reference range was not used to interpret this result as normal/abnormal. TRIGLYCERIDES (test code = 2571-8) 55 MG/DL See_Comment [Automated messa ge] The system which generated this result transmitted reference range: <150 MG/DL. The reference range was not used to interpret this result as normal/abnormal. ALBUMIN (test code = 1751-7) 4.4 G/DL See_Comment [Automated messa ge] The system which generated this result transmitted reference range: 3.5-5.2 G/DL. The reference range was not used to interpret this result as normal/abnormal. ALKALINE PHOSPHATASE (test code = 6768-6) 59 U/L See_Comment [Automated message] The system which generated this result transmitted reference range: 40-142 U/L. The reference range was not used to interpret this result as normal/abnormal. BILIRUBIN, TOTAL (test code = 1975-2) 0.2 MG/DL See_Comment [Automated messa ge] The system which generated this result transmitted reference range: <=1.2 MG/DL. The reference range was not used to interpret this result as normal/abnormal. BUN (test code = 3094-0) 16 MG/DL See_Comment [Automated messa ge] The system which generated this result transmitted reference range: 8-23 MG/DL. The reference range was not used to interpret this result as normal/abnormal. CALCIUM (test code = 45590-6) 9.7 MG/DL See_Comment [Automated messa ge] The system which generated this result transmitted reference range: 8.5-10.5 MG/DL. The reference range was not used to interpret this result as normal/abnormal. CALC A/G RATIO (test code = 1759-0) 1.8 RATIO See_Comment [Automated messa ge] The system which generated this result transmitted reference range: 1.0-2.6 RATIO. The reference range was not used to interpret this result as normal/abnormal. CALC BUN/CREAT (test code = 3097-3) 16 RATIO See_Comment [Automated messa ge] The system which generated this result transmitted reference range: 6-28 RATIO. The reference range was not used to interpret this result as normal/abnormal. CALC GLOBULIN (test code = 76397-6) 2.4 G/DL See_Comment [Automated messa ge] The system which generated this result transmitted reference range: 1.9-3.7 G/DL. The reference range was not used to interpret this result as normal/abnormal. CARBON DIOXIDE (test code = 1962-8) 28 MEQ/L See_Comment [Automated messa ge] The system which generated this result transmitted reference range: 19-31 MEQ/L. The reference range was not used to interpret this result as normal/abnormal. CHLORIDE (test code = 2075-0) 109 MEQ/L See_Comment H [Automated messa ge] The system which generated this result transmitted reference range: 95-107 MEQ/L. The reference range was not used to interpret this result as normal/abnormal. CREATININE (test code = 2160-0) 0.98 MG/DL See_Comment [Automated messa ge] The system which generated this result transmitted reference range: 0.60-1.30 MG/DL. The reference range was not used to interpret this result as normal/abnormal. eGFR (2020 CKD-EPI) (test code = 09930-3) 60 ML/MIN/1.73 See_Comment L [Automated message] The system which generated this result transmitted reference range: >60 ML/MIN/1.73. The reference range was not used to interpret this result as normal/abnormal. GLUCOSE (test code = 1558-6) 98 MG/DL See_Comment [Automated messa ge] The system which generated this result transmitted reference range: 70-99 MG/DL. The reference range was not used to interpret this result as normal/abnormal. POTASSIUM (test code = 2823-3) 4.9 MEQ/L See_Comment [Automated messa ge] The system which generated this result transmitted reference range: 3.5-5.4 MEQ/L. The reference range was not used to interpret this result as normal/abnormal. PROTEIN, TOTAL (test code = 2885-2) 6.8 G/DL See_Comment [Automated messa ge] The system which generated this result transmitted reference range: 6.1-8.3 G/DL. The reference range was not used to interpret this result as normal/abnormal. AST (test code = 1920-8) 18 U/L See_Comment [Automated messa ge] The system which generated this result transmitted reference range: 9-40 U/L. The reference range was not used to interpret this result as normal/abnormal. ALT (test code = 1742-6) 11 U/L See_Comment [Automated messa ge] The system which generated this result transmitted reference range: 5-40 U/L. The reference range was not used to interpret this result as normal/abnormal. SODIUM (test code = 2951-2) 146 MEQ/L See_Comment [Automated messa ge] The system which generated this result transmitted reference range: 133-146 MEQ/L. The reference range was not used to interpret this result as normal/abnormal. SEDIMENTATION [id number] 00:00:00* Test Item Value Reference Range Interpretation Comme nts SEDIMENTATION RATE (test code = 4537-7) 5 MM/HOUR See_Comment [Automated message] The system which generated this result transmitted reference range: 0-20 MM/HOUR. The reference range was not used to interpret this result as normal/abnormal. CBC W/AUTO [id number] 00:00:00* Test Item Value Reference Range Interpretation Comme nts NUCLEATED RBCS (test code = 25873-8) 0.0 /100 WBC'S See_Comment [Automated messa ge] The system which generated this result transmitted reference range: 0.0 /100 WBC'S. The reference range was not used to interpret this result as normal/abnormal. ABSOLUTE EOSINOPHILS (test code = 38080-6) 0.07 K/UL See_Comment [Automated messa ge] The system which generated this result transmitted reference range: 0.00-0.50 K/UL. The reference range was not used to interpret this result as normal/abnormal. ABSOLUTE LYMPHOCYTES (test code = 08836-5) 2.17 K/UL See_Comment [Automated messa ge] The system which generated this result transmitted reference range: 1.00-4.00 K/UL. The reference range was not used to interpret this result as normal/abnormal. ABSOLUTE MONOCYTES (test code = 93171-2) 0.46 K/UL See_Comment [Automated messa ge] The system which generated this result transmitted reference range: 0.20-1.00 K/UL. The reference range was not used to interpret this result as normal/abnormal. ABSOLUTE NEUTROPHILS (test code = 41675-2) 3.88 K/UL See_Comment [Automated messa ge] The system which generated this result transmitted reference range: 1.50-7.50 K/UL. The reference range was not used to interpret this result as normal/abnormal. BASOPHILS (test code = 68583-1) 0.5 % EOSINOPHILS (test code = 17188-5) 1.1 % HEMATOCRIT (test code = 19400-2) 39.0 % See_Comment [Automated messa ge] The system which generated this result transmitted reference range: 34.0-45.0 %. The reference range was not used to interpret this result as normal/abnormal. HEMOGLOBIN (test code = 718-7) 12.6 G/DL See_Comment [Automated messa ge] The system which generated this result transmitted reference range: 11.5-15.5 G/DL. The reference range was not used to interpret this result as normal/abnormal. LYMPHOCYTES (test code = 16157-3) 32.8 % MCH (test code = 73825-4) 29.1 PG See_Comment [Automated messa ge] The system which generated this result transmitted reference range: 25.0-33.0 PG. The reference range was not used to interpret this result as normal/abnormal. MCHC (test code = 48928-3) 32.3 G/DL See_Comment [Automated messa ge] The system which generated this result transmitted reference range: 31.0-36.0 G/DL. The reference range was not used to interpret this result as normal/abnormal. MCV (test code = 95903-9) 90.1 fL See_Comment [Automated messa ge] The system which generated this result transmitted reference range: 80.0-99.0 fL. The reference range was not used to interpret this result as normal/abnormal. MONOCYTES (test code = 86063-1) 6.9 % NEUTROPHILS (test code = 93291-1) 58.5 % PLATELET COUNT (test code = 34109-2) 304 K/UL See_Comment [Automated messa ge] The system which generated this result transmitted reference range: 130-400 K/UL. The reference range was not used to interpret this result as normal/abnormal. RBC (test code = 21110-3) 4.33 M/UL See_Comment [Automated messa ge] The system which generated this result transmitted reference range: 3.80-5.40 M/UL. The reference range was not used to interpret this result as normal/abnormal. RDW (test code = 00713-3) 13.1 % See_Comment [Automated messa ge] The system which generated this result transmitted reference range: 11.5-15.0 %. The reference range was not used to interpret this result as normal/abnormal. WBC (test code = 90182-4) 6.6 K/UL See_Comment [Automated messa ge] The system which generated this result transmitted reference range: 3.5-11.0 K/UL. The reference range was not used to interpret this result as normal/abnormal. CBC W/AUTO [id number] 00:00:00* Test Item Value Reference Range Interpretation Comme nts NUCLEATED RBCS (test code = 48132-5) 0.0 /100 WBC'S See_Comment [Automated messa ge] The system which generated this result transmitted reference range: 0.0 /100 WBC'S. The reference range was not used to interpret this result as normal/abnormal. ABSOLUTE EOSINOPHILS (test code = 46065-0) 0.11 K/UL See_Comment [Automated messa ge] The system which generated this result transmitted reference range: 0.00-0.50 K/UL. The reference range was not used to interpret this result as normal/abnormal. ABSOLUTE LYMPHOCYTES (test code = 88219-4) 2.56 K/UL See_Comment [Automated messa ge] The system which generated this result transmitted reference range: 1.00-4.00 K/UL. The reference range was not used to interpret this result as normal/abnormal. ABSOLUTE MONOCYTES (test code = 32713-8) 0.49 K/UL See_Comment [Automated messa ge] The system which generated this result transmitted reference range: 0.20-1.00 K/UL. The reference range was not used to interpret this result as normal/abnormal. ABSOLUTE NEUTROPHILS (test code = 25298-0) 3.57 K/UL See_Comment [Automated messa ge] The system which generated this result transmitted reference range: 1.50-7.50 K/UL. The reference range was not used to interpret this result as normal/abnormal. BASOPHILS (test code = 72957-5) 0.7 % EOSINOPHILS (test code = 87315-6) 1.6 % HEMATOCRIT (test code = 51868-9) 37.2 % See_Comment [Automated messa ge] The system which generated this result transmitted reference range: 34.0-45.0 %. The reference range was not used to interpret this result as normal/abnormal. HEMOGLOBIN (test code = 718-7) 12.7 G/DL See_Comment [Automated messa ge] The system which generated this result transmitted reference range: 11.5-15.5 G/DL. The reference range was not used to interpret this result as normal/abnormal. LYMPHOCYTES (test code = 35019-4) 37.7 % MCH (test code = 29181-6) 30.2 PG See_Comment [Automated messa ge] The system which generated this result transmitted reference range: 25.0-33.0 PG. The reference range was not used to interpret this result as normal/abnormal. MCHC (test code = 37119-3) 34.1 G/DL See_Comment [Automated messa ge] The system which generated this result transmitted reference range: 31.0-36.0 G/DL. The reference range was not used to interpret this result as normal/abnormal. MCV (test code = 21656-7) 88.6 fL See_Comment [Automated messa ge] The system which generated this result transmitted reference range: 80.0-99.0 fL. The reference range was not used to interpret this result as normal/abnormal. MONOCYTES (test code = 22566-3) 7.2 % NEUTROPHILS (test code = 12693-6) 52.7 % PLATELET COUNT (test code = 29959-1) 296 K/UL See_Comment [Automated messa ge] The system which generated this result transmitted reference range: 130-400 K/UL. The reference range was not used to interpret this result as normal/abnormal. RBC (test code = 59486-0) 4.20 M/UL See_Comment [Automated messa ge] The system which generated this result transmitted reference range: 3.80-5.40 M/UL. The reference range was not used to interpret this result as normal/abnormal. RDW (test code = 78878-7) 12.9 % See_Comment [Automated messa ge] The system which generated this result transmitted reference range: 11.5-15.0 %. The reference range was not used to interpret this result as normal/abnormal. WBC (test code = 61857-5) 6.8 K/UL See_Comment [Automated CreativeDa ge] The system which generated this result transmitted reference range: 3.5-11.0 K/UL. The reference range was not used to interpret this result as normal/abnormal. TROPONIN [id number] 23:10:02* Test Item Value Reference Range Interpretation Comme nts TROPONIN I (test code = 2625408222) 0.002 ng/mL <=0.034 ARTURO (test code = ARTURO) Reference (Normal) Range (defined by the 99th percentile reference limit): <= 0.034 ng/mL Note: Cardiac troponin begins to rise 3-4 hours after the onset of ischemia. Repeat in 4-6 hours if the sample was drawn within 3-4 hours of the onset of the symptom and found normal. Diagnosis of myocardial injury is made with acute changes in cTn concentrations with at least one serial sample above the 99th percentile upper reference limit (URL), taken together with the patient's clinical presentation. Biotin has been reported to cause a negative bias, interpret results relative to patient's use of biotin. Lab Interpretation (test code = 56375-5) Normal [id number] 23:07:00* Test Item Value Reference Range Interpretation Comme nts NT-proBNP (test code = 3582020025) 85 pg/mL <=125 ARTURO (test code = ARTURO) Biotin has been reported to cause a negative bias, interpret results relative to patient's use of biotin. Lab Interpretation (test code = 74442-5) Normal [facility]OL[facility] PAN[facility] (51593)2023-01-04 22:56:39* Test Item Value Reference Range Interpretation Comme nts NA (test code = 1523559298) 140 mmol/L 135-145 K (test code = 2333516838) 4.3 mmol/L 3.5-5.0 CL (test code = 8580603057) 104 mmol/L 98-108 CO2 TOTAL (test code = 4558034989) 28 mmol/L 23-31 AGAP (test code = 7966163654) 8 2-16 BUN (test code = 9724061572) 13 mg/dL 7-23 GLUCOSE (test code = 5555402347) 94 mg/dL 70-110 CREATININE (test code = 7914778573) 0.96 mg/dL 0.50-1.04 TOTAL BILI (test code = 5469804583) 0.5 mg/dL 0.1-1.1 CALCIUM (test code = 0833085609) 9.7 mg/dL 8.6-10.6 T PROTEIN (test code = 3166807974) 7.5 g/dL 6.3-8.2 ALBUMIN (test code = 4202678161) 4.5 g/dL 3.5-5.0 ALK PHOS (test code = 6277310362) 60 U/L 34-122 ALTv (test code = 1742-6) 17 U/L 5-35 AST(SGOT) (test code = 5194029320) 25 U/L 13-40 eGFR (test code = 7353217437) 56.8 mL/min/1.73m2 ARTURO (test code = ARTURO) Association of Glomerular Filtration Rate (GFR) and Staging of Kidney Disease* + + +- +| GFR (mL/min/1.73 m2) ?| With Kidney Damage ?| ?Without Kidney Damage+ ------+ ----+ ------+| ?>90 ?| ?Stage one ?| ? Normal ?+ -+ + -+| ?60-89 ?| ?Stage two ?| ? Decreased GFR ? + + +- +| ?30-59 ?| ?Stage three ?| ? Stage three ? + + +- +| ?15-29 ?| ?Stage four ? | ? Stage four ?+ -+ + -+| ?<15 (or dialysis) ? ?| ?Stage five ? | ? Stage five ?+ -+ + -+ *Each stage assumes the associated GFR level has been in effect for at least three months. ?Stages 1 to 5, with or without kidney disease, indicate chronic kidney disease. Notes: Determination of stages one and two (with eGFR >59mL/min/1.73 m2) requires estimation of kidney damage for at least three months as defined by structural or functional abnormalities of the kidney, manifested by either:Pathological abnormalities or Markers of kidney damage (including abnormalities in the composition of the blood or urine or abnormalities in imaging tests). [facility] 22:56:19* Test Item Value Reference Range Interpretation Comme nts LIPASE (test code = 5755784273) 75 U/L 0-220 Lab Interpretation (test cod e = 04549-0) Normal [facility] CenterCBC WITH [id number] 22:45:58* Test Item Value Reference Range Interpretation Comme nts WBC (test code = 6690-2) 8.91 See_Comment [Automated [employer]] The system which generated this result transmitted reference range: 4.30 - 11.10 10*3/?L. The reference range was not used to interpret this result as normal/abnormal. RBC (test code = 789-8) 4.38 See_Comment [Automated [employer]] The system which generated this result transmitted reference range: 3.93 - 5.25 10*6/?L. The reference range was not used to interpret this result as normal/abnormal. HGB (test code = 718-7) 13.0 g/dL 11.6-15.0 HCT (test code = 4544-3) 38.9 % 35.7-45.2 MCV (test code = 787-2) 88.8 fL 80.6-95.5 MCH (test code = 785-6) 29.7 pg 25.9-32.8 MCHC (test code = 786-4) 33.4 g/dL 31.6-35.1 RDW-SD (test code = 31645-5) 42.9 fL 39.0-49.9 RDW-CV (test code = 788-0) 13.1 % 12.0-15.5 PLT (test code = 777-3) 310 See_Comment [Automated Creative[employer] ge] The system which generated this result transmitted reference range: 166 - 358 10*3/?L. The reference range was not used to interpret this result as normal/abnormal. MPV (test code = 31980-0) 10.0 fL 9.5-12.9 NRBC/100 WBC (test code = 0246132659) 0.0 See_Comment [Automated me ssage] The system which generated this result transmitted reference range: 0.0 - 10.0 /100 WBCs. The reference range was not used to interpret this result as normal/abnormal. NRBC x10^3 (test code = 4610050427) See_Comment [Automated me ssage] The system which generated this result transmitted reference range: 10*3/?L. The reference range was not used to interpret this result as normal/abnormal. GRAN MAT (NEUT) % (test code = 770-8) 60.5 % IMM GRAN % (test code = 8903398909) 0.30 % LYMPH % (test code = 736-9) 32.1 % MONO % (test code = 5905-5) 6.1 % EOS % (test code = 713-8) 0.6 % BASO % (test code = 706-2) 0.4 % GRAN MAT x10^3(ANC) (test code = 6224726328) 5.39 10*3/uL 1.88-7.09 IMM GRAN x10^3 (test code = 5446185996) 0.03 10*3/uL 0.00-0.06 LYMPH x10^3 (test code = 731-0) 2.86 10*3/uL 1.32-3.29 MONO x10^3 (test code = 742-7) 0.54 10*3/uL 0.33-0.92 EOS x10^3 (test code = 711-2) 0.05 10*3/uL 0.03-0.39 BASO x10^3 (test code = 704-7) 0.04 10*3/uL 0.01-0.07 [facility]UR[facility]20[facility] 17:56:00* Test Item Value Reference Range Interpretation Comme nts APPEARANCE (test code = 0500637139) Clear Clear COLOR (test code = 1358041331) Yellow Yellow PH (test code = 8373816220) 4.8-8.0 SP GRAVITY (test code = 3642870040) 1.003-1.030 GLU U QUAL (test code = 4043120651) Normal Normal BLOOD (test code = 4080356354) Negative Negative KETONES (test code = 4673618213) Negative Negative PROTEIN (test code = 2887-8) Negative Negative UROBILIN (test code = 8844882566) Normal Normal BILIRUBIN (test code = 3102155881) Negative Negative NITRITE (test code = 1831587470) Negative Negative LEUK MARTINEZ (test code = 8261828065) 25/uL Negative A RBC/HPF (test code = 2586345970) See_Comment [Automated messa ge] The system which generated this result transmitted reference range: 0 - 3 HPF. The reference range was not used to interpret this result as normal/abnormal. WBC/HPF (test code = 9473544670) See_Comment [Automated messa ge] The system which generated this result transmitted reference range: 0 - 5 HPF. The reference range was not used to interpret this result as normal/abnormal. BACTERIA (test code = 1828782640) Few Negative A SQ EPITH (test code = 2212370604) <1 HPF Lab Interpretation (test code = 59466-4) Abnormal [facility] CenterDEXA, BONE DENSITY AXIAL SKELEDEXA, BONE DENSITY AXIAL SKELE Notes Date/Time Note Provider Source 2024-07-18 11:00:00 Patient here for Cardiac Coronary CT. Diagnosis is low-mod probability of CAD. States no caffeine in 24 hours. Initial VS taken at 1028 B/P 135/67, HR 59, Respirations 14, SpO2 98. A 20 gauge IV was placed. At 1059, patient was taken to CT and placed on dining room helper showing cardiac rhythm sinus rhythm. HR 65. At 1101, B/P 134/70, and Nitroglycerin 0.8 mg SL was given. After CT, patient was monitored, and at discharge VS were: Time 1112 B/P 122/66, HR 61, Resp 16, SpO2 97. IV was D/C'd and a clean, dry, dressing was placed. Pt denies dizziness, chest pain, or shortness of breath and was discharged in stable condition. Lizeth Kyle RN [facility] 2024-07-04 08:00:00 Patient was enrolled for 30 day event monitor to be mailed to home for self hook-up. Patient already aware of plan from LINDA. Radha Willams RN [facility]"
[2025-02-20 16:46] LABS: Absolute Eosinophils 0.1 K/uL (0-0.5); Absolute Lymphocytes (CBC) 2.1 K/uL (0.7-4.9); Absolute Monocytes 0.6 K/uL (0.1-1.3); Absolute Neutrophil 5.4 K/uL (1.8-8.0); Basophils % 0.6 % (0-1.3); Eosinophils % 0.9 % (0-4.4); Hematocrit 37.4 % (36.0-45.0); Lymphocytes % 25.7 % (15.3-44.8); MCH 30.6 pg (27.0-35.0); MCHC 34.6 g/dL (32.0-36.0); MCV 88.5 fL (80-100); MPV 8.5 fL (7.6-11.3); Monocytes % 7.2 % (3.3-12.3); Neutrophils % 65.6 % (41.7-73.7); Nucleated Red Blood Cells % 0.1 % (0-0); Platelets 292 thou/uL (152-406); RBC Red Blood Cell Count 4.23 M/uL (3.86-4.86); Red Cell Distribution Width 14.2 % (12.1-15.2)
--- NOTE | 2025-02-20 16:55 | RAD REPORT ---
EXAMINATION: ONE VIEW CHEST XR CLINICAL INDICATION: CHEST PAIN TECHNIQUE: Frontal chest projection is submitted. Examination is limited by patient positioning and t echnique. COMPARISON: 07/19/2020 FINDINGS: The lungs are well inflated and clear. The heart is normal in size. No displaced fractures identified . IMPRESSION: No acute intrathoracic abnormalities.
[2025-02-20 17:05] LABS: Anion Gap 7.7 mEq/L (5.0-15.0); Potassium 3.7 mEq/L (3.5-5.1)
--- NOTE | 2025-02-20 17:31 | EDPHYS ---
Physician Documentation [facility] Name: Cristiana Krause Age: 74 yrs Sex: Female : 1950 Arrival Date: 02/20/2025 Time: 16:06 Bed 18 Private MD: ED Physician Fito Araujo HPI: 02/20 16:38 This 74 yrs old Black Female presents to ER via Ambulatory with complaints of Chest ms3 Pain, Palpitations. 16:38 74-year-old female with past medical history of hypertension presents to the emergency ms3 department for 1 week of intermittent chest pains with palpitations. Patient states the episodes last approximately a few minutes and occur multiple times per day. Patient endorses fatigue. Patient states discomfort is better after taking deep breaths. She denies any inciting factors. Historical: - Allergies: 16:24 No Known Allergies; cm10 - Home Meds: 16:24 amlodipine oral [Active]; Lisinopril Oral [Active]; cm10 - PMHx: 16:24 Hypertensive disorder; cm10 - Immunization history:: Adult Immunizations up to date. - Infectious Disease History:: Denies. - Social history:: Smoking status: Patient denies any tobacco usage or history of. ROS: 16:38 Constitutional: Negative for fever, and chills. Cardiovascular: Negative for chest ms3 pain, and palpitations. Respiratory: Negative for shortness of breath, cough, wheezing, and pleuritic chest pain, Abdomen/GI: Negative for abdominal pain, nausea, vomiting, diarrhea, and constipation, MS/Extremity: Negative for injury and deformity, Skin: Negative for injury, rash, and discoloration, Exam: 16:36 ECG was reviewed by the Attending Physician. ms3 16:38 Constitutional: This is a well developed, well nourished patient who is awake, alert, ms3 and in no acute distress. Cardiovascular: Regular rate and rhythm with a normal S1 and S2. No gallops, murmurs, or rubs. Normal PMI, no JVD. No pulse deficits. Respiratory: Lungs have equal breath sounds bilaterally, clear to auscultation and percussion. No rales, rhonchi or wheezes noted. No increased work of breathing, no retractions or nasal flaring. Abdomen/GI: Soft, non-tender, with normal bowel sounds. No distension or tympany. No guarding or rebound. No evidence of tenderness throughout. Vital Signs: 16:23 BP 164 / 65; Pulse 73; Resp 15; Temp 98.3; Pulse Ox 100% ; Weight 58.97 kg; Height 5 cm10 ft. 4 in. ; Pain 3/10; 17:08 BP 134 / 62; Pulse 66; Resp 18; Pulse Ox 100% on R/A; ld1 18:00 BP 127 / 60; Pulse 64; Resp 23; Temp 98.3; Pulse Ox 100% ; me1 16:23 Body Mass Index 22.31 (58.97 kg, 162.56 cm) cm10 16:23 Pain Scale: Adult cm10 MDM: 16:23 Medical Screening Exam initiated ms3 16:38 Differential diagnosis: abnormal EKG, Electrolyte abnormality versus arrhythmia. ms3 18:00 HEART Score: History: Slightly Suspicious (0), ECG: Normal (0), Age: > or = 65 years ms3 (2), Risk Factors: 1 or 2 risk factors (1), Troponin: < or = 1 x Normal Limit (0), Total Score = 3. Data reviewed: vital signs, nurses notes, lab test result(s), EKG, radiologic studies, and as a result, I will discharge patient. Independent interpretation of the following test(s) in the Emergency Department EKG: See my EKG interpretation above. Counseling: I had a detailed discussion with the patient and/or guardian regarding the historical points, exam findings, and any diagnostic results supporting the discharge/admit diagnosis, lab results, radiology results, the need for outpatient follow up, to return to the emergency department if symptoms worsen or persist or if there are any questions or concerns that arise at home. Special discussion: Based on the patient's history, exam, and Dx evaluation, there is no indication for emergent intervention or inpatient Tx. It is understood by the patient/guardian that if the Sx's persist or worsen they need to return immediately for re-evaluation. ED course: Discussed labs, EKG, chest x-ray findings with patient. Patient to follow-up with primary care physician 2 to 3 days. Patient understands and agrees with plan. All questions were answered. Return precautions discussed include lightheadedness, chest pain, shortness of breath, worsening symptoms, or any other concerns. On reevaluation patient is alert and oriented x 4, no apparent distress, nontoxic-appearing, speaking full sentences. 02/20 16:11 Order name: Basic Metabolic Panel; Complete Time: 17:23 ms3 02/20 16:11 Order name: CBC with Diff; Complete Time: 17:01 ms3 02/20 16:11 Order name: Magnesium; Complete Time: 17:23 ms3 02/20 16:11 Order name: Troponin HS; Complete Time: 17:23 ms3 02/20 16:11 Order name: XRAY Chest (1 view); Complete Time: 17: ms3 02/20 16:11 Order name: Cardiac monitoring; Complete Time: 16:36 ms3 02/20 16:11 Order name: EKG - Nurse/Tech; Complete Time: 16: ms3 02/20 16:11 Order name: IV Saline Lock; Complete Time: 16:36 ms3 02/20 16:11 Order name: Labs collected and sent; Complete Time: 16:36 ms3 02/20 16:11 Order name: O2 Per Protocol; Complete Time: 16: ms3 02/20 16:11 Order name: O2 Sat Monitoring; Complete Time: 16:26 ms3 EC:36 Rate is 68 beats/min. Rhythm is regular. QRS [place] is Normal. PA interval is normal. QRS ms3 interval is normal. QT interval is normal. Clinical impression: Normal ECG. Interpreted by me. Reviewed by me. Administered Medications: No medications were administered Disposition Summary: 02/20/25 17:30 Discharge Ordered Notes: Location: Home ms3 Condition: Stable ms3 Diagnosis - Palpitations ms3 Followup: ms3 - With: Tank Marquez MD - When: 2 - 3 days - Reason: Recheck today's complaints Discharge Instructions: - Discharge Summary Sheet ms3 - Palpitations ms3 Forms: - Medication Reconciliation Form ms3 - Antibiotic Education ms3 - Prescription Opioid Use ms3 - Patient Portal Instructions ms3 - Leadership Thank You Letter ms3 Signatures: Dispatcher [employer] Fito Levy DO DO ms3 Leigh Chowdary, RN RN cm10
--- NOTE | 2025-02-20 17:31 | ER ---
Nurse's Notes [facility] Name: Cristiana Krause Age: 74 yrs Sex: Female : 1950 Arrival Date: 02/20/2025 Time: 16:06 Bed 18 Private MD: Diagnosis: Palpitations Presentation: 02/20 16:23 Chief complaint: Patient states: Left sided chest pain onset 1 week ago. Pt states that cm10 the pain is intermittent and describes the pain as "nagging". Coronavirus screen: Client denies travel out of the [place] in the last 14 days. Ebola Screen: Patient denies travel to an Ebola-affected area in the 21 days before illness onset. Initial Sepsis Screen: Does the patient meet any 2 criteria? No. Patient's initial sepsis screen is negative. Does the patient have a suspected source of infection? No. Patient's initial sepsis screen is negative. Risk Assessment: Do you want to hurt yourself or someone else? Patient reports no desire to harm self or others. Onset of symptoms is unknown. 16:23 Method Of Arrival: Ambulatory cm10 16:23 Acuity: KYLAH 2 cm10 Triage Assessment: 16:25 General: Appears in no apparent distress. comfortable, Behavior is calm, cooperative. cm10 Pain: Complains of pain in chest Pain does not radiate. Pain currently is 3 out of 10 on a pain scale. Neuro: No deficits noted. Level of Consciousness is awake, alert, obeys commands, Oriented to person, place, time, situation, Appropriate for age. Respiratory: No deficits noted. Airway is patent Respiratory effort is even, unlabored, Respiratory pattern is regular, symmetrical. Historical: - Allergies: 16:24 No Known Allergies; cm10 - Home Meds: 16:24 amlodipine oral [Active]; Lisinopril Oral [Active]; cm10 - PMHx: 16:24 Hypertensive disorder; cm10 - Immunization history:: Adult Immunizations up to date. - Infectious Disease History:: Denies. - Social history:: Smoking status: Patient denies any tobacco usage or history of. Screenin:08 [facility] ED Fall Risk Assessment (Adult) History of falling in the last 3 months, ld1 including since admission No falls in past 3 months (0 pts) Confusion or Disorientation No (0 pts) Intoxicated or Sedated No (0 pts) Impaired Gait No (0 pts) Mobility Assist Device Used No (0 pt) Altered Elimination No (0 pt) Score/Fall Risk Level 0 - 2 = Low Risk Oriented to surroundings, Hourly rounding (assess needs \\T\\ fall precautionary measures) done. Abuse screen: Denies threats or abuse. Denies injuries from another. Nutritional screening: No deficits noted. Tuberculosis screening: No symptoms or risk factors identified. Assessment: 17:08 General: Appears in no apparent distress. comfortable, Behavior is calm, cooperative, ld1 appropriate for age. Pain: Complains of pain in chest Pain does not radiate. Pain currently is 7 out of 10 on a pain scale. Quality of pain is described as throbbing, Pain began suddenly, Is continuous. Neuro: Level of Consciousness is awake, alert, obeys commands, Oriented to person, place, time, situation. Cardiovascular: Capillary refill < 3 seconds Patient's skin is warm and dry. Rhythm is sinus rhythm. Respiratory: Airway is patent Respiratory effort is even, unlabored. GI: Abdomen is round non-distended. : No signs and/or symptoms were reported regarding the genitourinary system. EENT: No signs and/or symptoms were reported regarding the EENT system. Derm: No signs and/or symptoms reported regarding the dermatologic system. Musculoskeletal: No signs and/or symptoms reported regarding the musculoskeletal system. Vital Signs: 16:23 BP 164 / 65; Pulse 73; Resp 15; Temp 98.3; Pulse Ox 100% ; Weight 58.97 kg; Height 5 cm10 ft. 4 in. ; Pain 3/10; 17:08 BP 134 / 62; Pulse 66; Resp 18; Pulse Ox 100% on R/A; ld1 18:00 BP 127 / 60; Pulse 64; Resp 23; Temp 98.3; Pulse Ox 100% ; me1 16:23 Body Mass Index 22.31 (58.97 kg, 162.56 cm) cm10 16:23 Pain Scale: Adult cm10 ED Course: 16:10 Patient arrived in ED. cj3 16:11 Fito Araujo DO is Attending Physician. ms3 16:24 Triage completed. cm10 16:25 Patient placed in an exam room, on a stretcher, on pulse oximetry. Arm band placed on cm10 right wrist. EKG completed in triage. Results shown to MD. 16:26 EKG done, by ED staff, reviewed by Fito Araujo DO. Patient maintains SpO2 saturation cm10 greater than 95% on room air. 16:36 Basic Metabolic Panel Sent. cm10 16:36 CBC with Diff Sent. cm10 16:36 Magnesium Sent. cm10 16:36 Troponin HS Sent. cm10 16:36 Initial lab(s) drawn, by me, sent to lab. Inserted saline lock: 22 gauge in left cm10 antecubital area, using aseptic technique. Blood collected. Flushed with 10 mL NS. 16:40 Mindy Araujo, RN is Primary Nurse. ld1 16:46 XRAY Chest (1 view) In Process Unspecified. EDMS 17:08 Patient has correct armband on for positive identification. Placed in gown. Bed in low ld1 position. Call light in reach. Side rails up X2. furnace feeder on. Pulse ox on. NIBP on. Door closed. Noise minimized. Warm blanket given. 17:08 No provider procedures requiring assistance completed. ld1 17:30 Tank Marquez MD is Referral Physician. ms3 18:36 IV discontinued, intact, bleeding controlled, No redness/swelling at site. Pressure me1 dressing applied. 18:37 Provided Education on:. me1 Administered Medications: No medications were administered Medication: 17:08 VIS not applicable for this client. ld1 Outcome: 17:30 Discharge ordered by MD. ms3 18:36 Discharged to home ambulatory, me1 18:36 Condition: stable 18:36 Discharge instructions given to patient, Instructed on discharge instructions, follow up and referral plans. Demonstrated understanding of instructions, follow-up care, 18:37 Patient left the ED. me1 Signatures: Dispatcher [employer] EDNJ Fito Araujo DO DO ms3 Mindy Araujo, RN RN ld1 Leigh Chowdary RN RN 10 Ingrid Levy RN RN me1 Deisy Jalloh cj3
[2025-02-20 19:00] VITALS: TEMP 98.3; O2SAT 100
[2025-02-20 19:02] VITALS: BP 127/60
--- NOTE | 2025-02-21 12:36 | EKG ---
Test Date: 2025-02-20 Test Time: 16:24:36 [employer] Salesperson: WILIAM MEASUREMENT RESULTS: Intervals: Rate: 68 NH: 140 QRSD: 96 QT: 388 QTc: 412 [place]: P: 43 NH: 140 QRS: -6 T: 18 INTERPRETIVE STATEMENTS: Normal sinus rhythm Normal ECG Compared to ECG 07/18/2020 14:57:39 Sinus bradycardia no longer present Electronically Signed On 02-21-25 12:35:51 CDT by Miguelangel Grimes
== END 2025-02-20 18:37 | disposition home or self-care (01) ==
LOC: ER 16:06
DX: R00.2 Palpitations (principal); R07.9 Chest pain, unspecified; I10 Essential (primary) hypertension
CPT/HCPCS: 36415; 71045; 80048; 83735; 84484; 85025; 93005; 99284